=== PATIENT | male | born 1955 | race Caucasian/White ===

== ENCOUNTER 2021-03-27 13:45 | Emergency (ER) | payer OTHER ==
[2021-03-27] MEDS ORDERED: NORCO 5-325 TA1 EACH PO (18:17)
[2021-03-27] MEDS ORDERED: CEPHALEXIN500 M1 PO (18:20)
== END 2021-03-27 18:33 | disposition home or self-care (01) ==
LOC: FER 13:45
DX: I82.411 Acute embolism and thrombosis of right femoral vein (principal); L03.115 Cellulitis of right lower limb; J44.9 Chronic obstructive pulmonary disease, unspecified; E11.9 Type 2 diabetes mellitus without complications; F17.210 Nicotine dependence, cigarettes, uncomplicated; Z88.1 Allergy status to other antibiotic agents
CPT/HCPCS: 99283